=== PATIENT | female | born 1955 | race Caucasian/White ===

== ENCOUNTER 2016-12-09 11:04 | Inpatient (IN) | payer BC ==
--- NOTE | ~2016-12-09 | DS ---
Discharge Summary [facility] [address] [place]. [address] NAME: DARON DELOGN : 57 STATUS : DIS IN PAT#: [id number] AGE: 61 ADM/REG DATE : 12/09/16 MR#: [id number] REPORT SERV DATE: 12/23/16 DICTATED BY: CLARIBEL PURI DATE: 12/23/16 REPORT STATUS : Draft TRANSCRIBED BY: MARCELINO DATE: 12/23/16 Data Collection from hospitalization DISCHARGE DIAGNOSES: 1. Right septic total knee arthroplasty. 2. Sleep apnea. 3. Arthritis. 4. Depression. CONSULTATIONS: Domo Meléndez M.D. PROCEDURES PERFORMED: Right knee open irrigation and debridement with polyethylene exchange and application of Stimulan beads on 12/09/2016. PATHOLOGY: Soft tissue, right knee - orthopedic hardware - chronic reactive changes with soft tissue showing prominent macrophage response with overlying fibrin (no significant neutrophilic infiltration). MEDICATIONS: Cipro 500 mg every 12 hours, Celexa 40 mg every evening, Flexeril 10 mg three times a day as needed, Lasix as instructed, [place] 7.5/325 one tablet every four hours as needed, Roxicodone 5 mg every four hours as needed, and Coumadin 5 mg daily. CONDITION AT DISCHARGE: Stable. DISPOSITION: The patient was discharged home to be followed by home health care on a regular diet with activities as instructed. She would follow up with Dr. Claribel Puri two weeks following discharge. HOSPITAL COURSE: This is a 61-year-old female who has arthritis of the right knee. She had undergone right total knee arthroplasty in 2011. She had a history of chronic low back pain and venous stasis in the lower extremities and a venous stasis ulcer of the left ankle. She had a diarrheal illness of unknown cause associated with fevers two weeks prior to this admission, but gradually got better on its own. She then had the onset about five days prior to this admission of severe pain in the right knee. She had a total knee arthroplasty done in that knee about five years ago and had an uneventful surgery and recovery, and the knee had done well until this pain started. There have no recent trauma to it. She had no wounds. There have been no unusual environmental exposures. The only problems were the venous stasis ulcer on the other side for a year and the diarrheal illness. Treatment options were discussed and it was elected to proceed with surgical intervention. She was admitted to the hospital at this time for further evaluation and treatment. Upon admission, she was taken to the operating room where she underwent the above-mentioned procedure. She tolerated this well, and there were no complications. On postop day #1, she had no complaints. INR level was 1.2. Cultures were pending. She was evaluated by Occupational and Physical Therapy. Vancomycin was continued. On 12/11/2016, she was seen by Dr. Domo Meléndez for evaluation and treatment of infected total knee arthroplasty. White blood cell count was 8.1. She had a normal differential. Fluid from the knee obtained on 12/08/2016 had shown 20,000 red cells, 69,620 white cells, and 92% segs. Discharge Summary [address] [address] NAME: DARON DELONG : 57 STATUS : DIS IN PAT#: [id number] AGE: 61 ADM/REG DATE : 12/09/16 MR#: [id number] REPORT SERV DATE: 12/23/16 DICTATED BY: CLARIBEL PURI DATE: 12/23/16 REPORT STATUS : Draft TRANSCRIBED BY: MARCELINO DATE: 12/23/16 Cultures taken thus far were negative as were the cultures from surgery. 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 It was felt that cultures were likely to be false negative because she had been admitted to another hospital and given IV antibiotics prior to the aspirate and washout, but he was worried mainly about gram-positive cocci such as Staph or strep. Gram negative rods were less likely, but still possible. She would be treated empirically using vancomycin and cefepime to cover all likely possibilities. Antibiotics would be changed as indicated. It was felt that she would need six weeks of IV antibiotics, which would be decided on cultures or empirically if cultures were negative. Discharge planning was performed. A PICC line was inserted. She continued to do well. On 12/12/2016, she had no new symptoms. She remained afebrile. All of her cultures remained negative. She was up sitting in a bedside chair. MARCELA hose were in place. Maxipime was continued as well as IV vancomycin. She was to use CPAP at bedtime. BuSpar and citalopram were continued. Discharge instructions were given. Due to her improved and stable condition, she was discharged home to be followed by home health care with the above-stated instructions. Information collected by: Nighat Pisano I submit the above information as my discharge summary. LEONARDO/MARCELINO Claribel Puri M.D. / [id number] CC: Claribel Puri M.D. [facility] M.D[facility]
--- NOTE | ~2016-12-09 | OP ---
Record Of Operation [facility] [address] [place]. [address] NAME: DARON DELONG : 57 STATUS : ADM IN PAT#: [id number] AGE: 61 ADM/REG DATE : 12/09/16 MR#: [id number] REPORT SERV DATE: 12/10/16 DICTATED BY: CLARIBEL PURI DATE: 12/09/16 REPORT STATUS : Draft TRANSCRIBED BY: MODL DATE: 12/09/16 DATE OF PROCEDURE: 12/09/2016 PREOPERATIVE DIAGNOSIS: Right septic total knee arthroplasty. POSTOPERATIVE DIAGNOSIS: Right septic total knee arthroplasty. PROCEDURE PERFORMED: Right knee open irrigation and debridement with polyethylene exchange and application of Stimulan beads. SURGEON: Claribel Puri M.D. FIELD SERVICE TECHNICIAN POULTRY: Gema Mathis. ANESTHESIA: General. PROCEDURE IN DETAIL: The patient is clearly identified, and after obtaining informed consent, she is brought to the operating room at [facility] where she is induced under general anesthesia as her right lower extremity prepped and draped in the usual manner. This concluded, after appropriate time-out procedure is performed. Anterior approach to the knee is performed. After elevation and exsanguination is performed, the tourniquet is elevated to 350 mmHg. Anterior approach to the knee is performed. Skin is divided. Fascial planes are elevated. Parapatellar medial approach is then formed. Pus is encountered on entering the joint. There is some synovitis and sclerotic tissues through the joint, which are all carefully excised in a formal synovectomy back to good tissues. The polyethylene is removed. The implants themselves are well adhered to bone consistent with her acute period of discomfort and pain with effusion and findings of pus in the aspiration, and subsequently the area that is completely debrided and synovectomy is performed, there is no evidence of other pathology noted, at which point, copious irrigation is performed with the pulsatile lavage followed by changing of the gowns, hoods, gloves, and dressings on the patient's leg in a standard fashion from dirty to clean setups. Subsequently, copious irrigation is again performed, repeated SIGMA PFC by adBriteuy implant polyethylene is placed, size 4, 10 mm, and this concluded, with excellent stability found, again irrigation is performed, drains applied, Stimulan beads are placed into the joint cavity mixed with vancomycin and tobramycin. At which point, the area is then carefully closed in layers, cleansed and dressed, and the patient is allowed to awaken and transferred to the recovery room in stable condition having tolerated the procedure well. ESTIMATED BLOOD LOSS: 150 mL. FLUIDS: 1200 mL. TOURNIQUET TIME: 12 minutes (the tourniquet is deflated after the synovectomy is performed and while we initiate the irrigation). PATHOLOGY: Sent specimen. Record Of Operation [address] [place]. [address] NAME: DARON DELONG : 57 STATUS : ADM IN [facility]#: [id number] AGE: 61 ADM/REG DATE : 12/09/16 MR#: [id number] REPORT SERV DATE: 12/10/16 DICTATED BY: CLARIBEL PURI DATE: 12/09/16 REPORT STATUS : Draft TRANSCRIBED BY: MARCELINO DATE: 12/09/16 MICROBIOLOGY: Sent specimen. COMPLICATIONS: None. SPONGE AND NEEDLE COUNTS: Reportedly correct. Antibiotics are administered preoperatively as expected. OTF/MARCELINO Claribel Puri M.D. / [id number] CC: Claribel Puri M.D.
--- NOTE | ~2016-12-09 | CN ---
Consultation Report [facility] [address] [place]. [address] NAME: DARON DELONG : 57 STATUS : ADM IN [facility]#: [id number] AGE: 61 ADM/REG DATE : 12/09/16 MR#: [id number] REPORT SERV DATE: 12/10/16 DICTATED BY: GEORGE NOBLE DATE: 12/10/16 REPORT STATUS : Draft TRANSCRIBED BY: MODL DATE: 12/10/16 INFECTIOUS DISEASE CONSULT DATE OF CONSULTATION: REASON FOR REFERRAL: Evaluation and treatment of infected total knee arthroplasty. HISTORY OF PRESENT ILLNESS: The patient is a 61-year-old female. She has a history of chronic low back pain, venous stasis in the lower extremities, and a venous stasis ulcer in her left ankle. A diarrheal illness of still unknown cause associated with fevers two weeks ago, but which gradually got better on its own. She then had onset five days ago with severe pain in her right knee. She had a total knee arthroplasty done in that knee five years ago, had an uneventful surgery and recovery and the knee had done well until this pain started. There had been no recent trauma to it. No wounds. No unusual environmental exposures. The only really antecedent problems were the venous stasis ulcer on the other side for a year and the diarrheal illness. She lives on [address], works at [email or web address], has not traveled. No history of unusual exposures like animals, cuts, bites, scratches, etc. PAST MEDICAL HISTORY: Otherwise unremarkable. MEDICATIONS: She was given vancomycin and Ancef last night. ALLERGIES: SHE HAS NO KNOWN ANTIMICROBIAL ALLERGIES. SOCIAL HISTORY: She is , nonsmoker. No history of alcohol or substance abuse. FAMILY HISTORY: Noncontributory. PHYSICAL EXAMINATION: GENERAL: A nontoxic adult female, in no acute distress. She is alert and oriented x3. VITAL SIGNS: Her temperature here at present is 98.2, last night was 98.8, present pulse 63, respirations 16, blood pressure 172/81. HEENT: Sclerae clear. No oral lesions. NECK: Supple. LUNGS: Clear. HEART: Regular rate and rhythm. ABDOMEN: Soft, nontender. Positive bowel sounds. EXTREMITIES: Without clubbing, cyanosis. The right knee was covered by a bulky postoperative dressing. The skin above and below it appeared to be normal. LABORATORY DATA: White blood cell count 8.1, hematocrit 37.7, and platelets 281. Normal differential. No white blood cell count. BUN and creatinine 12 and 0.48. Fluid from the Consultation Report [facility] [id number] [place]. [address] NAME: DARON DELONG : 57 STATUS : ADM IN [facility]#: [id number] AGE: 61 ADM/REG DATE : 12/09/16 MR#: [id number] REPORT SERV DATE: 12/10/16 DICTATED BY: GEORGE NOBLE DATE: 12/10/16 REPORT STATUS : Draft TRANSCRIBED BY: MARCELINO DATE: 12/10/16 knee obtained on the showed 20,000 red cells, 69,620 white cells, 92% segs. Culture taken then so far is negative as are the cultures from surgery last evening. 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 Cultures are likely to be false negative because she was admitted to another hospital, given IV antibiotics prior to the aspirate and washout, but I would be worried mainly about gram-positive cocci such as staph or strep. Gram-negative rods, less likely, but still possible. RECOMMENDATIONS: 1. We will treat empirically using vancomycin and cefepime to cover all the likely possibilities. 2. Follow up cultures tomorrow. Change antibiotics as indicated. 3. She will need six weeks of IV antibiotics to be decided on cultures or empirically if cultures are negative. Finally, I will follow the patient with you. I appreciate very much your consulting on this patient. AMAYA George Noble M.D. / [id number] CC: Tom Yanes JASON ANTHONY
[~2016-12-09 11:04] MED LIST: BUSPAR5 PO; CELEXA40 MG PO; NORCO1 TA2 PO
[2016-12-09 14:53] LABS: BASOPHILS 0.4 %; BASOPHILS ABSOLUTE 0.03 10/3/uL (0.0-0.16); EOSINOPHILS 3.6 %; EOSINOPHILS ABSOLUTE 0.29 10/3/uL (0.0-0.53); HEMATOCRIT 37.7 % (36.0-48.0); HEMOGLOBIN 12.3 g/dL (12.0-16.0); IMMATURE GRANULOCYTES 1.6 %; IMMATURE GRANULOCYTES ABSOLUTE 0.13 10/3/uL (0.0-0.11); LYMPHOCYTES 19.9 %; LYMPHOCYTES ABSOLUTE 1.61 10/3/uL (0.67-4.30); MANUAL DIFF NO %; MEAN CORPUS HGB CONC 32.6 g/dL (32.0-36.0); MEAN CORPUSCULAR HEMOGLOB 28.9 pg (26.0-34.0); MEAN CORPUSCULAR VOLUME 88.5 fL (80-100); MEAN PLATELET VOLUME 9.5 fL (9.2-13.0); MONOCYTES 11.1 %; NEUTROPHILS 63.4 %; NEUTROPHILS ABSOLUTE 5.12 10/3/uL (2.02-8.40); PLATELET COUNT 281 10/3/uL (150-400); RBC DISTRIBUTION WIDTH 12.8 % (12.0-16.0); RED CELL COUNT 4.26 10/6/uL (4.0-5.6); WHITE BLOOD CELLS 8.1 10/3/uL (4.5-10.5)
[2016-12-09 15:01] LABS: INTERNATIONAL NORMAL RATI 1.2 UNITS (-); PARTIAL THROMBO TIME 31.5 SEC (22.5-37.2); PROTIME (NOT ORD) 15.1 SEC (12.0-14.5)
[2016-12-09 15:07] LABS: A/G RATIO 0.7 (0.7-1.9); ALKALINE PHOSPHATASE 81 U/L (45-117); BUN (BLOOD UREA NITROGEN) 14 MG/DL (6-23); CHLORIDE, SERUM 107 MMOL/L (96-112); CO2 (CARBON DIOXIDE) 30 MMOL/L (24-34); CREATININE 0.53 MG/DL (0.55-1.02); GFR AFRICAN AMERICAN 120 ML/MIN (>=60); GFR NON AFRICAN AMERICAN 103 ML/MIN (>=60); GLOBULIN 4.4 G/DL (2.5-4.1); GLUCOSE, SERUM 119 MG/DL (60-99); POTASSIUM, SERUM 3.5 MMOL/L (3.5-5.3); SGOT(AST) 11 U/L (5-40); SGPT(ALT) 17 U/L (5-65); TOTAL BILIRUBIN 0.5 MG/DL (0-1.2); TOTAL PROTEIN 7.5 G/DL (6.0-8.5)
[2016-12-09 15:14] LABS: ALBUMIN 3.1 G/DL (3.5-5.0); CALCIUM, SERUM 10.1 MG/DL (8.5-10.4); SODIUM, SERUM 145 MMOL/L (135-148)
[2016-12-09] MEDS ORDERED: FLEX PO (16:08)
[2016-12-09] MEDS ORDERED: L20 PO (16:09)
[2016-12-10 05:23] LABS: HEMATOCRIT 36.9 % (36.0-48.0); HEMOGLOBIN 12.1 g/dL (12.0-16.0)
[2016-12-10 05:29] LABS: INTERNATIONAL NORMAL RATI 1.2 UNITS (-); PROTIME (NOT ORD) 15.2 SEC (12.0-14.5)
[2016-12-10 05:45] LABS: BUN (BLOOD UREA NITROGEN) 12 MG/DL (6-23); CALCIUM, SERUM 9.7 MG/DL (8.5-10.4); CHLORIDE, SERUM 107 MMOL/L (96-112); CO2 (CARBON DIOXIDE) 28 MMOL/L (24-34); CREATININE 0.48 MG/DL (0.55-1.02); GFR AFRICAN AMERICAN 124 ML/MIN (>=60); GFR NON AFRICAN AMERICAN 107 ML/MIN (>=60); GLUCOSE, SERUM 127 MG/DL (60-99); POTASSIUM, SERUM 3.5 MMOL/L (3.5-5.3); SODIUM, SERUM 144 MMOL/L (135-148)
[2016-12-11 05:17] LABS: HEMATOCRIT 34.5 % (36.0-48.0); HEMOGLOBIN 11.2 g/dL (12.0-16.0)
[2016-12-11 05:29] LABS: INTERNATIONAL NORMAL RATI 1.3 UNITS (-); PROTIME (NOT ORD) 15.6 SEC (12.0-14.5)
[2016-12-12 05:00] LABS: HEMATOCRIT 34.2 % (36.0-48.0); HEMOGLOBIN 11.3 g/dL (12.0-16.0)
[2016-12-12 05:10] LABS: INTERNATIONAL NORMAL RATI 1.3 UNITS (-); PROTIME (NOT ORD) 16.4 SEC (12.0-14.5)
[2016-12-12] MEDS ORDERED: C5 PO (16:22)
[2016-12-12] MEDS ORDERED: OXYCOD PO (16:23)
[2016-12-12] MEDS ORDERED: CIP5 PO (16:24)
[2017-04-21] MEDS ORDERED: PRIN10 PO (14:52)
[2017-04-21] MEDS ORDERED: ZANAFLEX 4 MG TA4 MG PO (14:53)
[2017-04-21] MEDS ORDERED: NORCO1 TAB PO (14:54)
[2017-04-21] MEDS ORDERED: ENDOCET1 TA3 PO (14:55)
[2017-04-21] MEDS ORDERED: POTASSIUM OTC (14:55)
[2017-04-25] MEDS ORDERED: ZOFRAN4 PO (09:48)
[2017-04-25] MEDS ORDERED: DIL2TAB PO (09:48)
[2017-04-25] MEDS ORDERED: C5 PO (09:49)
== END 2016-12-12 20:10 | disposition home health service (06) | DRG 468 ==
LOC: SDC/OF 11:04 → 3SO 12:53
PROVIDERS: Orthopaedic Surgery
PROC: 0SRC0JZ Replacement of Right Knee Joint with Synthetic Substitute, Open Approach (ICD-10-PCS; principal; 2016-12-09 17:15)
PROC: 0SPC0JZ Removal of Synthetic Substitute from Right Knee Joint, Open Approach (ICD-10-PCS; 2016-12-09 17:15)
PROC: 0SBC0ZZ Excision of Right Knee Joint, Open Approach (ICD-10-PCS; 2016-12-09 17:15)
PROC: 02HV33Z Insertion of Infusion Device into Superior Vena Cava, Percutaneous Approach (ICD-10-PCS; 2016-12-11)
PROC: 4A02X4A Measurement of Cardiac Electrical Activity, Guidance, External Approach (ICD-10-PCS; 2016-12-11)
PROC: 3E04329 Introduction of Other Anti-infective into Central Vein, Percutaneous Approach (ICD-10-PCS; 2016-12-11)
DX: T84.53XA Infection and inflammatory reaction due to internal right knee prosthesis, initial encounter (principal); F32.9 Major depressive disorder, single episode, unspecified; G47.33 Obstructive sleep apnea (adult) (pediatric); Z96.651 Presence of right artificial knee joint; Z79.899 Other long term (current) drug therapy
CPT/HCPCS: 36569; 71020; 73560-RT; 80048; 80053; 80202; 85014; 85018; 85025; 85610; 85730; 87015; 87070; 87075; 87102; 87116; 87205; 88300; 88304; 93005; 97110-GP; 97116-GP; 97161-GP; 97166-GO; 97535-GO; A9270-GY; C1713; C1751; C1776; J0360; J0690; J0692; J1170; J2175; J2250; J2405; J2710; J3010; J3260; J3370